=== PATIENT | male | born 1985 | race Caucasian/White ===

== ENCOUNTER 2020-09-18 05:15 | Emergency (ER) | payer BC, SELFPAY ==
[2020-09-18] VITALS (9 sets, daily range): BP systolic 133–147; BP diastolic 78–85; PULSE 76–89; RESP 18; TEMP 37.3–37.6; O2SAT 93–98; BMI 24.3
[2020-09-18 06:30] LABS: Basophils # 0.1 K/mm3 (0-0.2); Basophils % 0.6 % (0.1-2.0); Eosinophils % 0.1 % (0.1-12.0); Hemoglobin 14.1 g/dL (14.1-18.0); Lymphocytes # 1.3 K/mm3 (0.7-4.5); Mean Corpuscular HGB Conc 32.7 g/dL (31.8-35.4); Mean Corpuscular Hemoglobin 28.6 pg (27.0-31.2); Mean Corpuscular Volume 87.3 fl (80-94); Mean Platelet Volume 8.8 fl (7.4-10.4); Monocytes # 0.8 K/mm3 (0.1-1.0); Monocytes % 8.2 % (1.7-9.3); Neutrophils # 7.8 K/mm3 (1.8-7.8); Platelet Count 228 K/mm3 (142-424); Red Blood Count 4.92 M/mm3 (4.60-6.20); Red Cell Distribution Width 12.9 % (11.5-17.5)
[2020-09-18 06:36] LABS: Alanine Aminotransferase 55 U/L (12-78); Albumin Level 3.5 g/dl (3.5-5.0); Albumin/Globulin Ratio 1.1 (1.1-1.8); Alkaline Phosphatase 161 U/L (38-126); Anion Gap 9.3 mEq/L (5-15); Aspartate Amino Transferase 60 U/L (17-59); Bilirubin,Total 0.5 mg/dl (0.2-1.3); Blood Urea Nitrogen 20 mg/dl (9-20); Calcium 8.8 mg/dl (8.4-10.2); Carbon Dioxide 32 mmol/L (22.0-30.0); Chloride 93 mmol/L (98-107); Creatinine Clearance Estimated 110 mL/min (50-200); Estimated Glomerular Filt Rate 86 ml/min (>60); GFR (African American) 103 ML/MIN (>60); Globulin 3.3 g/dL (1.3-3.2); Glucose 344 mg/dl (74-100); Potassium 4.3 mmoL/L (3.5-5.1); Sodium 130 mmol/L (136-145); Total Protein,Serum 6.8 g/dl (6.3-8.2)
[2020-09-18 06:41] LABS: C-Reactive Protein 118.2 mg/L (0-4)
[2020-09-18 06:41] LABS: Microscopic, Urine URINE MICROSCOPIC (MICROSCOPIC)
[2020-09-18 06:52] LABS: Procalcitonin 0.809 ng/mL (0.0-2.0)
[2020-09-18 07:03] LABS: Appearance,Urine CLEAR (Clear); Bilirubin,Urine Negative (Negative); Blood, Urine Negative (Negative); Color,Urine YELLOW (Yellow); Glucose,Urine (UA) 3+ (Negative); Ketones,Urine Negative (Negative); Leukocyte Esterase,Urine Negative (Negative); Nitrate,Urine Negative (Negative); Protein,Urine Negative (Negative); Specific Gravity, Urine <= 1.005 (1.005-1.030); Urobilinogen,Urine 0.2 EU/dl (0.2)
[2020-09-18 07:27] LABS: Erythrocyte Sedimentation Rate 12 mm/hr (0-15)
--- NOTE | 2020-09-18 07:30 | XR_ITS ---
PROCEDURE: XR HIP RT 2-3V W/PELVIS CLINICAL INDICATION: pain COMPARISON: No exams were available for comparison FINDINGS: There are mild osteoarthritic changes of the right hip with some decrease in the joint space and osteosclerosis of the acetabular roof. Contrast is present in the urinary bladder. No acute fracture or dislocation. No lytic or blastic change. IMPRESSION: Mild osteoarthritic change Dictated by: Barry Hogan MD 09/18/2020 08:45 Barry Hogan MD in [facility] 09/18/2020 08:45
--- NOTE | 2020-09-18 07:30 | CT_ITS ---
PROCEDURE: CT THORACIC SPINE W CON CLINICAL HISTORY: pain COMPARISON: No exams were available for comparison TECHNIQUE: Axial images obtained with sagittal and coronal reformats. All CT scans at the facility use one or more dose reduction, viz: automated exposure control, ma/kV adjustment per patient size (including targeted exams where dose is matched to indication, i.e. head), or iterative reconstruction technique. FINDINGS: Normal alignment. No acute fracture or dislocation. No lytic or blastic change. No paraspinal mass or enhancing lesions there is mild degenerative disc disease with endplate irregularity at T6, T7, T8, T9 and T10. Schmorl's nodes are present on the endplates the at T9-T8 and T7. There is trace small right effusion with atelectasis or infiltrate in the right lung base posteriorly. This is below limits of resolution on the chest x-ray. IMPRESSION: 1. Degenerative changes of the thoracic spine. No acute fracture. 2. Right basilar atelectasis or infiltrate with trace effusion Dictated by: Barry Hogan MD 09/18/2020 08:51 Barry Hogan MD in [facility] 09/18/2020 08:51
--- NOTE | 2020-09-18 07:30 | XR_ITS ---
PROCEDURE: XR SHOULDER RT MIN 2V CLINICAL INDICATION: pain COMPARISON: No exams were available for comparison FINDINGS: No fracture or dislocation. No lytic or blastic change. There is normal mineralization. The joint spaces are well-preserved. No significant degenerative/arthritic changes. No erosive changes evident. Other findings:None. IMPRESSION: No acute findings. Dictated by: Barry Hogan MD 09/18/2020 08:45 Barry Hogan MD in [facility] 09/18/2020 08:45
--- NOTE | 2020-09-18 07:30 | XR_ITS ---
PROCEDURE: XR CHEST 2V CLINICAL HISTORY: soa Shortness of air with fever COMPARISON: No exams were available for comparison FINDINGS: The cardiomediastinal silhouette and pulmonary vascularity are within normal limits. The lungs are clear without infiltrates, suspicious nodules, or pleural effusions. No acute bony abnormalities. IMPRESSION: No acute findings. Dictated by: Barry Hogan MD 09/18/2020 08:46 Barry Hogan MD in [facility] 09/18/2020 08:46
[2020-09-18 07:31] LABS: Acetone, Serum (Rapid) None Detected (None Detect)
[2020-09-18 07:36] LABS: RBC,Urine Occasional #/hpf (0-3)
--- NOTE | 2020-09-18 08:35 | HMH.EDGENADL ---
ED Disposition Clinical Impression: Muscle spasm of back Bursitis of hip, right Qualifiers: Hip bursitis location: trochanteric bursitis Qualified Code(s): M70.61 - Trochanteric bursitis, right hip Disposition: Home, Self-Care Condition on Discharge: Good Referrals: Jackie Martinez [Primary Care Provider] - 3 days Time of Disposition: 10:19 - Critical Care Critical Care Time: No Attestation: On 09/18/20, the high probability of a clinically significant, sudden or life threatening deterioration of the following system(s) required my full and direct attention, intervention and personal management. The time I documented below is in addition to time spent performing reported procedures but includes the following listed in this critical care notation. Medical Decision Making - Anibal Inquiry Pt receiving controlled substance: No Vital Signs: 09/18/20 05:53 09/18/20 06:00 09/18/20 06:09 Temperature 99.7 F H Temperature Source Oral Pulse Rate [Left Brachial] 83 Respiratory Rate 18 Blood Pressure 142/80 H Blood Pressure [Left Arm] 147/85 H Blood Pressure Mean 111 Blood Pressure Mean [Left Arm] 105 Blood Pressure Source [Left Arm] Automatic Cuff Blood Pressure Position [Left Arm] 02 Sat by Pulse Oximetry 96 96 97 Oxygen Delivery Method Room Air 09/18/20 06:15 09/18/20 06:35 09/18/20 06:45 Temperature Temperature Source Pulse Rate [Left Brachial] Respiratory Rate Blood Pressure Blood Pressure [Left Arm] Blood Pressure Mean Blood Pressure Mean [Left Arm] Blood Pressure Source [Left Arm] Blood Pressure Position [Left Arm] 02 Sat by Pulse Oximetry 98 96 97 Oxygen Delivery Method 09/18/20 06:56 09/18/20 07:26 Temperature Temperature Source Pulse Rate [Left Brachial] 76 Respiratory Rate Blood Pressure 135/80 Blood Pressure [Left Arm] 134/78 Blood Pressure Mean 98 Blood Pressure Mean [Left Arm] 96 Blood Pressure Source [Left Arm] Automatic Cuff Blood Pressure Position [Left Arm] Supine 02 Sat by Pulse Oximetry 97 93 L Oxygen Delivery Method Room Air - Lab Data Lab results reviewed: Yes: I reviewed the patient's lab results. Lab Results 09/18/20 05:45: WBC 10.0, RBC 4.92, Hgb 14.1, Hct 43.0, MCV 87.3, MCH 28.6, MCHC 32.7, RDW 12.9, Plt Count 228, MPV 8.8, Neut % (Auto) 78.0, Lymph % (Auto) 13.0, Meagher % (Auto) 8.2, Eos % (Auto) 0.1, Baso % (Auto) 0.6, Neut # (Auto) 7.8, Lymph # (Auto) 1.3, Meagher # (Auto) 0.8, Eos # (Auto) 0.0, Baso # (Auto) 0.1, ESR 12 09/18/20 05:45: Sodium 130 L, Potassium 4.3, Chloride 93 L, Carbon Dioxide 32 H, Anion Gap 9.3, BUN 20, Creatinine 1.00, Estimated Creat Clear 110, Estimated GFR 86, Est GFR ( Amer) 103, Glucose 344 H, Calcium 8.8, Total Bilirubin 0.5, AST 60 H, ALT 55, Alkaline Phosphatase 161 H, C-Reactive Protein 118.2 H, Total Protein 6.8, Albumin 3.5, Globulin 3.3 H, Albumin/Globulin Ratio 1.1, Procalcitonin 0.809 09/18/20 05:45: Acetone Level None detected 09/18/20 06:35: Urine Color Yellow, Urine Appearance Clear, Urine pH 6.0, Ur Specific [place] <= 1.005, Urine Protein Negative, Urine Glucose (UA) 3+, Urine Ketones Negative, Urine Blood Negative, Urine Nitrate Negative, Urine Bilirubin Negative, Urine Urobilinogen 0.2, Ur Leukocyte Esterase Negative, Urine RBC Occasional, Urine WBC 3-5, Ur Squamous Epith Cells 3-5, Urine Bacteria None Result diagrams: 09/18/20 05:45 09/18/20 05:45 Orders (Tests/Meds): ED MEDICATIONS Generic Name Dose Route Start Last Admin Trade Name Freq PRN Reason Stop Dose Admin Sodium Chloride 10 ml 09/18/20 08:09 Sodium Chloride 0.9% 10ml Syr (Rad Only) IV 10/18/20 08:08 NEEDED PRN Maintain IV Site Discontinued Medications Generic Name Dose Route Start Last Admin Trade Name Freq PRN Reason Stop Dose Admin Lactated Ringer's 1,000 mls @ 999 mls/hr 09/18/20 06:15 09/18/20 06:53 Lactated Ringer's 1000 Ml Bag IV 09/18/20 07:15 999
--- NOTE | 2020-09-18 09:42 | PC.NURSE ---
called dr hi for dr walter for admission
--- NOTE | 2020-09-19 21:26 | PC.NURSE ---
[facility] called for medical records on patient due to patient going to their er.
== END 2020-09-18 10:27 | disposition home or self-care (01) ==
PROVIDERS: Emergency Provider Emergency Medicine; PCP Nurse Practitioner Family
DX: M70.61 Trochanteric bursitis, right hip (principal); M62.830 Muscle spasm of back; E10.65 Type 1 diabetes mellitus with hyperglycemia
CPT/HCPCS: 71046; 72129; 73030; 73502; 80053; 81001; 82009; 84145; 85025; 85651; 86140; 96365; 96375; 99283; J2405; Q9967

== ENCOUNTER → 2020-10-09 13:24 | Outpatient (CLI) | payer BC, SELFPAY ==
--- NOTE | 2020-10-09 13:28 | CT_ITS ---
PROCEDURE: CT PELVIS WO CON CLINICAL HISTORY: RT HIP ARTHRITIS,BUTTOCK ABSCESS COMPARISON: No exams were available for comparison TECHNIQUE: Axial images obtained with sagittal and coronal reformats. All CT scans at the facility use one or more dose reduction, viz: automated exposure control, ma/kV adjustment per patient size (including targeted exams where dose is matched to indication, i.e. head), or iterative reconstruction technique. FINDINGS: Report is delayed waiting on additional images which are submitted for interpretation on 10/11/2020. There is some subcutaneous soft tissue swelling in the lateral aspect of the right hip. No obvious abscess is evident. Abscess evaluation is limited without IV contrast. There is mild thickening of the right iliotibial tract/fascia. No fracture or dislocation. No bony destructive process. IMPRESSION: Stranding of the subcutaneous fat in the right lateral hip region and mild thickening the iliotibial tract/fascia consistent with cellulitis and fasciitis. No obvious abscess apparent. Dictated by: Barry Hogan MD 10/11/2020 09:07 Barry Hogan MD in [facility] 10/11/2020 09:07
== END ==
PROVIDERS: PCP Nurse Practitioner Family; Visit Provider Internal Medicine Infectious Disease
DX: L02.31 Cutaneous abscess of buttock (principal); M00.851 Arthritis due to other bacteria, right hip
CPT/HCPCS: 72192

== ENCOUNTER 2021-03-02 14:02 | Emergency (ER) | payer BC, SELFPAY ==
[2021-03-02 16:34] VITALS: BP 134/85; PULSE 75; RESP 19; TEMP 36.8; O2SAT 97; BMI 24.3
--- NOTE | 2021-03-02 16:48 | HMH.EDUTC ---
[facility] [place] Clinical Impression: Exposure to COVID-19 virus, Viral syndrome Disposition: Home, Self-Care Condition on Discharge: Good Instructions: DI for COVID-19 (Suspected or Confirmed ), Preventing the Spread of Coronavirus Discharge Instructions Additional Instructions: Drink plenty of fluids. Take tylenol or ibuprofen for pain or fever. Follow up with your regular doctor. GO TO THE ER FOR ANY WORSENING SYMPTOMS Quarantine until you know the results of your covid-19 test. If it is positive, the health department should call you and give you further instructions about your length of Quarantine and other things. Notify your school or workplace of your results and follow their instructions regarding return to work/school. Referrals: Jackie Martinez [Primary Care Provider] - Time of Disposition: 16:50 Medical Decision Making - Medical Records Medical records reviewed: No: I reviewed the patient's medical records. - Anibal Inquiry Pt receiving controlled substance: No Vital Signs: 03/02/21 16:34 03/02/21 17:07 Temperature 98.2 F 98.2 F Temperature Source Oral Pulse Rate 75 Pulse Rate [Left] 75 Respiratory Rate 19 16 Blood Pressure 134/85 Blood Pressure [Right Arm] 134/85 Blood Pressure Mean [Right Arm] 101 02 Sat by Pulse Oximetry 97 - Lab Data Lab Results 03/02/21 20:28: Strep Scn Rapid Clinic Negative Orders (Tests/Meds): ORDERS Category Date Time Status Covid-19 Nasal PCR ([facility]) Routine Lab 03/02/21 16:30 Received Strep Screen Confirmation Stat Micro 03/02/21 20:28 Received [facility] [place] HPI - General Stated complaint: diabetic, covid exposure, throat sore Time Seen by Provider: 03/02/21 16:49 Mode of Arrival: Ambulatory Source of Information: Patient Limitations: No Limitations Description of Symptoms (Recalled from Triage Doc. by RN): PT C/O CHILLS, SORE THROAT, AND BODY ACHES HEENT Symptoms (Recalled from RN notes): Yes (SORE THROAT) Resp Symptoms (Recalled from RN notes): No Skin Symptoms (Recalled from RN notes): No MS Symptoms (Recalled from RN notes): No Functional Status (Recalled from RN notes): CHILLS AND BODY ACHES - History of Present Illness Provider Complaint: He states that he was exposed to covid-19 at his job. He has had some body aches over the past 1 day, but he denies any other complaints. - Related Data Previous Rx's Medication Instructions Recorded Cyclobenzaprine HCl [Flexeril 10mg 10 mg PO Q8HP PRN 7 Days #21 tab 09/18/20 tablet] Allergies Allergy/AdvReac Type Severity Reaction Status Date / Time SULFA (sulfonamide) Allergy Unknown NA-NAUSEA/V Uncoded 06/23/17 14:47 OMITING - Worker's Comp Is this a Worker's Comp case?: No [facility] History - Hepatitis A Screen Drug use history?: No High risk sexual behaviors?: No History of sexually transmitted infection?: No Currently employed?: No Childcare worker?: No Do you have indoor plumbing?: Yes Do you have electricity?: Yes Attestation statement:: This patient has been screened for Hepatitis A risk factors. I have reviewed the patient's past medical history: Yes Medical History: Reports:: Diabetes Mellitus Type 1 ROS Obtained: Yes All systems reviewed & no additional complaints - Constitutional Constitutional: Reports system reviewed and no additional complaints, except as docu - Eyes Eyes: Reports system reviewed and no additional complaints, except as docu - ENT Ears, Nose, Mouth, and Throat: Reports system reviewed and no additional complaints, except as docu - Cardiovascular Cardiovascular: Reports system reviewed and no additional complaints, except as docu - Respiratory Respiratory: Reports system reviewed and no additional complaints, except as docu - Gastrointestinal Gastrointestingal: Reports: system reviewed and no additional complaints, except as docu Physical Exam - General General appearance: alert, in no apparent distress
[2021-03-02 17:07] VITALS: BP 134/85; PULSE 75; RESP 16; TEMP 36.8
[2021-03-02 22:04] LABS: UTC Strep Screen (Rapid) Negative (Negative)
== END 2021-03-02 17:11 | disposition home or self-care (01) ==
PROVIDERS: Emergency Provider Nurse Practitioner Family; PCP Nurse Practitioner Family
DX: U07.1 COVID-19 (principal); E10.9 Type 1 diabetes mellitus without complications; Z88.2 Allergy status to sulfonamides
CPT/HCPCS: 87880; 99203; G0463; U0003

== ENCOUNTER → 2021-07-25 13:40 | Outpatient (CLI) | payer BC, SELFPAY | PROVIDERS: Visit Provider Nurse Practitioner | DX: U07.1 COVID-19 (principal) | CPT/HCPCS: C9803; U0003; U0005 ==

== ENCOUNTER 2022-08-22 18:10 | Emergency (ER) | payer BC, SELFPAY ==
[2022-08-22 18:19] VITALS: BP 142/78; PULSE 73; RESP 16; TEMP 36.6; O2SAT 99; BMI 22.8
[2022-08-22 18:30] VITALS: BP 142/78; PULSE 73; RESP 16; TEMP 36.6; O2SAT 99; BMI 22.9
[2022-08-22 18:59] VITALS: BP 142/78; PULSE 73; RESP 16; TEMP 36.6; O2SAT 99
--- NOTE | 2022-08-22 19:11 | EXP.UTC ---
Discharge Plan Disposition Patient Disposition: Home, Self-Care Condition: Good Prescriptions Prescriptions: New meclizine 25 mg tablet 25 mg PO TID PRN (Reason: dizziness) Qty: 15 0RF fluticasone propionate [Flonase Allergy Relief] 50 mcg/actuation spray,suspension 1 spray intranasal DAILY Qty: 16 0RF Rx Instructions: administer into each nostril No Action cyclobenzaprine 10 MG tablet 10 mg PO Q8HP PRN (Reason: Muscle Spasm) 7 Days Qty: 21 0RF Referrals Follow up/Referrals: Vero Valdivia APRN [Primary Care Provider] - See instructions Activity Restrictions/Add. Instructions Additional Instructions/Restrictions: Slow steady movments do not make any quick movements Take meclizine as prescribed for vertigo/dizziness Continue antibiotics for ear infection Follow up with your Family Doctor on Thursday if no improvement or any worsening of symptoms Watch your blood sugar as discussed No driving or operating heavy equiptment while havign vertigo Clinical Impressions Clinical Impression: Dizziness Stand Alone Forms Stand Alone Forms: Work/School Release Instructions Patient Instructions: Vertigo Discharge ED Provider: Callie Mei [facility] [place], [place] General Stated complaint: dizzy ears rings Mode of Arrival: Ambulatory Source of Information: Patient Limitations: No Limitations Time Seen by Provider: 08/22/22 19:11 Description of Symptoms (Recalled from Triage Doc. by RN): PATIENT C/O DIZZINESS, HEADACHE AND FEELING HOT. DIAGNOSED WITH AN EAR INFECTION 2 DAYS AGO HEENT Symptoms (Recalled from RN notes): Yes Resp Symptoms (Recalled from RN notes): No Skin Symptoms (Recalled from RN notes): No MS Symptoms (Recalled from RN notes): No Functional Status (Recalled from RN notes): WNL History of Present Illness Provider Complaint: Patient states that he was dx with right ear infection 2 days ago and started on antibiotics States that he has been taking them but doesnt feel like it is getting any better States that he has still been having pressure and fullness in his ears states that he has a history of vertigo and has been having dizziness today and feeling like the room is spinning and bumping into things and wasnt able to go to work States that when he moves too quickly dizziness worsens Related Data Previous Rx's Medication Instructions Recorded cyclobenzaprine 10 mg tablet 10 mg PO Q8HP PRN Muscle Spasm 7 03/16/21 days #21 tabs fluticasone propionate 50 1 spray intranasal DAILY #16 grams 08/22/22 mcg/actuation nasal spray,suspension (Flonase Allergy Relief) meclizine 25 mg tablet 25 mg PO TID PRN dizziness #15 tabs 08/22/22 Allergies Allergy/AdvReac Type Severity Reaction Status Date / Time SULFA (sulfonamide) Allergy Unknown NA-NAUSEA/V Uncoded 06/23/17 14:47 OMITING Worker's Comp Is this a Worker's Comp case?: No [facility] Disclaimer: The information contained in this section may have been updated after the patient was seen, as this information can be updated by other users. Medical History (Updated 08/22/22 @ 19:22 by Callie Mei APRN) Diabetes mellitus type 1 Thyroid disease Social History (Updated 08/22/22 @ 18:41 by Bella Amaral RN) Smoking Status: Unknown if ever smoked alcohol intake: never current occupational status: other Travel in the last 8 weeks: None ROS Obtained: Yes All systems reviewed & no additional complaints except as documented and Yes Systems reviewed as appropriate & no additional complaints except as documented Constitutional Constitutional: Reports system reviewed and no additional complaints, except as documented, Reports as per HPI and Denies headache(s) ENT Ears, Nose, Mouth, and Throat: Reports system reviewed and no additional complaints, except as documented, Reports as per HPI, Denies abnormal hearing, Reports dizziness, Reports otalgia, Denies headache(s) and Reports vertigo Cardiovascular Cardiovascular: R
== END 2022-08-22 20:01 | disposition home or self-care (01) ==
LOC: ER 18:19 → UTC 18:20
PROVIDERS: Emergency Provider Nurse Practitioner; PCP Nurse Practitioner Family
DX: R42 Dizziness and giddiness (principal)
CPT/HCPCS: 96372; 99212; 99213; G0463

== ENCOUNTER 2023-05-04 08:35 | Emergency (ER) | payer BC, SELFPAY ==
[2023-05-04] VITALS (7 sets, daily range): BP systolic 121–135; BP diastolic 68–86; PULSE 62–84; RESP 16; TEMP 36.7; O2SAT 97–100; BMI 24.3
--- NOTE | 2023-05-04 09:08 | CT_ITS ---
FINAL REPORT CLINICAL HISTORY: vertigo, not improving COMPARISON: None FINDINGS: Axial images of the head were obtained without contrast. Coronal and sagittal reformatted images were also obtained.This study was performed with techniques to keep radiation doses as low as reasonably achievable (ALARA). Individualized dose reduction techniques using automated exposure control or adjustment of mA and/or kV according to the patient's size were employed. There is no evidence of intracranial hemorrhage or mass. The ventricular size is within normal limits. There is no evidence of shift of the midline structures. No abnormal extra axial fluid collection is identified. No skull abnormality is seen on the bone window images. IMPRESSION: No acute intracranial abnormality. Reviewed, Interpreted and Dictated by Shivam Reis III, MD Transcribed by Avelina Powell Authenticated and [facility]
--- NOTE | 2023-05-04 09:08 | CT_ITS ---
FINAL REPORT TECHNIQUE: Thin section axial CT with IV contrast supplemented with multiplanar reconstruction under CT angiogram protocol. 3-D reconstructions were performed. This study was performed with techniques to keep radiation doses as low as reasonably achievable (ALARA). Individualized dose reduction techniques using automated exposure control or adjustment of mA and/or kV according to the patient's size were employed. CLINICAL HISTORY: vertigo, not improving COMPARISON: None no significant intracranial vascular abnormality identified. FINDINGS: The distal vertebral, basilar and distal internal carotid arteries have an unremarkable appearance. No aneurysm is seen. Major intracranial vessels are patent without significant stenosis. IMPRESSION: No significant intracranial vascular abnormality identified. Reviewed, Interpreted and Dictated by Shivam Reis III, MD Transcribed by Avelina Powell Authenticated and [facility]
--- NOTE | 2023-05-04 09:08 | CT_ITS ---
FINAL REPORT TECHNIQUE: Thin section axial CT with IV contrast supplemented with multiplanar reconstruction under CT angiogram protocol. This study was performed with techniques to keep radiation doses as low as reasonably achievable (ALARA). Individualized dose reduction techniques using automated exposure control or adjustment of mA and/or kV according to the patient's size were employed. NASCET criteria was utilized during interpretation. CLINICAL HISTORY: vertigo, not improving COMPARISON: None FINDINGS: Aortic arch: Arch shows no significant narrowing. Great vessel origins are widely patent. Right carotid: No significant stenosis is seen of the cervical common or internal carotid artery. Left carotid: No significant stenosis is seen of the cervical common or internal carotid artery. Vertebral: Left vertebral artery is dominant. No significant stenosis is present. IMPRESSION: No evidence of significant carotid or vertebral artery stenosis in the neck. Reviewed, Interpreted and Dictated by Shivam Reis III, MD Transcribed by Avelina Powell Authenticated and . [facility]
--- NOTE | 2023-05-04 09:08 | PC.NURSE ---
Dr. Patterson at [facility] for pt eval
--- NOTE | 2023-05-04 09:11 | HMH.EDGENADL ---
Discharge Plan Disposition Patient Disposition: Home, Self-Care Condition: Good Prescriptions Prescriptions: No Action cyclobenzaprine 10 MG tablet 10 mg PO Q8HP PRN (Reason: Muscle Spasm) 7 Days Qty: 21 0RF meclizine 25 mg tablet 25 mg PO TID PRN (Reason: dizziness) Qty: 15 0RF fluticasone propionate [Flonase Allergy Relief] 50 mcg/actuation spray,suspension 1 spray intranasal DAILY Qty: 16 0RF Rx Instructions: administer into each nostril Referrals Follow up/Referrals: Vero Valdivia APRN [Primary Care Provider] - See instructions Activity Restrictions/Add. Instructions Additional Instructions/Restrictions: You were evaluated in the emergency department today. Continue taking meclizine at home as needed for symptoms. I also recommend using Flonase to help with drainage from your ears. I recommend close follow-up with ENT. Return to the emergency department for any new or worsening symptoms. Clinical Impressions Clinical Impression: Vertigo Instructions Patient Instructions: DI for Vertigo, DI for Meniere Disease Discharge ED Provider: Ashley Patterson General Adult HPI General Chief complaint: Dizziness Stated complaint: dizziness, nausea, ringing in right ear Time Seen by Provider: 05/04/23 09:03 Mode of Arrival: Ambulatory Source of Information: Patient Limitations: No Limitations Description of Symptoms (Recalled from ER Triage Doc. by RN): Patient states he has been having issues with vertigo and ringing in his right ear for some time now. States that his PCP prescribed him meclizine and that all it does is make him sleep. States he spoke to his PCP who stated he needed to come to the ER for evaluation because it is not getting any better. History of Present Illness HPI narrative: This patient is a 38-year-old male who denies significant past medical history presenting to the emergency department for evaluation with concern for dizziness patient reports that he has been dealing with vertigo for a month and a half, and he has seen his primary care provider 3 times for this. He states that he has been put on meclizine, which is not helping his symptoms. He notes that he is scheduled to see ENT, however his appointment is not until May. He notes that he has a constant sensation that the room is spinning which gets worse with position changes. He also notes that he has ringing in his right ear. He states his primary care provider told him to come in for evaluation because he may need a CT scan of his head. He denies any vision changes, headaches, numbness, tingling, unilateral weakness, difficulties with balance, or other concerns. Related Data Previous Rx's Medication Instructions Recorded cyclobenzaprine 10 mg tablet 10 mg PO Q8HP PRN Muscle Spasm 7 09/18/20 days #21 tabs fluticasone propionate 50 1 spray intranasal DAILY #16 grams 08/22/22 mcg/actuation nasal spray,suspension (Flonase Allergy Relief) meclizine 25 mg tablet 25 mg PO TID PRN dizziness #15 tabs 08/22/22 Allergies Allergy/AdvReac Type Severity Reaction Status Date / Time Sulfa (Sulfonamide Allergy Intermediate Nausea Verified 05/04/23 10:14 Antibiotics) [facility] Disclaimer: The information contained in this section may have been updated after the patient was seen, as this information can be updated by other users. Medical History Diabetes mellitus type 1 Thyroid disease Social History Smoking Status: Never smoker alcohol intake: never current occupational status: other Travel in the last 8 weeks: None ROS Obtained: Yes All systems reviewed & no additional complaints except as documented Physical Exam General General appearance: alert and in no apparent distress Head Head exam: atraumatic and normocephalic Eye Eye exam: Present normal appearance, PERRL, EOMI and ny
[2023-05-04 09:40] LABS: Chloride 96 mmol/L (98-107)
[2023-05-04 09:41] LABS: Basophils # 0.1 K/mm3 (0-0.2); Eosinophils # 0.7 K/mm3 (0.0-0.4); Eosinophils % 8.3 % (0.1-12.0); Hemoglobin 15.9 g/dL (14.1-18.0); Lymphocytes # 2.7 K/mm3 (0.7-4.5); Lymphocytes % 33.2 % (10-50); Mean Corpuscular HGB Conc 34.5 g/dL (31.8-35.4); Mean Corpuscular Hemoglobin 30.8 pg (27.0-31.2); Mean Corpuscular Volume 89.1 fl (80-94); Mean Platelet Volume 9.5 fl (7.4-10.4); Monocytes # 0.6 K/mm3 (0.1-1.0); Monocytes % 7.2 % (1.7-9.3); Neutrophils % 50.3 % (37.0-80.0); Platelet Count 207 K/mm3 (142-424); Potassium 3.9 mmoL/L (3.5-5.1); Red Blood Count 5.16 M/mm3 (4.60-6.20); Red Cell Distribution Width 13.4 % (11.5-17.5); Sodium 137 mmol/L (136-145)
[2023-05-04 09:43] LABS: Blood Urea Nitrogen 14 mg/dl (9-20); Creatinine Clearance Estimated 104 mL/min (50-200); Estimated Glomerular Filt Rate 84 ml/min (>60); GFR (African American) 102 ML/MIN (>60)
[2023-05-04 09:44] LABS: Anion Gap 7.9 mEq/L (5-15); Calcium 8.9 mg/dl (8.4-10.2); Carbon Dioxide 37 mmol/L (22.0-30.0); Glucose 278 mg/dl (74-100)
--- NOTE | 2023-05-04 09:57 | PC.NURSE ---
Pt gone to RAD
--- NOTE | 2023-05-04 10:15 | PC.NURSE ---
Pt returned from RAD
--- NOTE | 2023-05-04 10:35 | PC.NURSE ---
Rounded on pt. No needs voiced at this time. Call light within reach.
--- NOTE | 2023-05-04 10:53 | PC.NURSE ---
ct scan read is currently locked according to radiology
--- NOTE | 2023-05-04 11:44 | PC.NURSE ---
Rounded on pt. No needs voiced at this time. Call light within reach.
== END 2023-05-04 12:07 | disposition home or self-care (01) ==
PROVIDERS: Emergency Provider Emergency Medicine; PCP Nurse Practitioner Family
DX: R42 Dizziness and giddiness (principal); R73.9 Hyperglycemia, unspecified
CPT/HCPCS: 70450; 70496; 70498; 80048; 85025; 99284; 99285; Q9967

== ENCOUNTER → 2023-06-11 11:19 | Outpatient (POV) | payer BC, SELFPAY | PROVIDERS: Visit Provider Specialist/Technologist | DX: Z00.00 Encounter for general adult medical examination without abnormal findings (principal) ==

== ENCOUNTER 2023-07-22 07:34 | Outpatient (CLI) | payer BC, SELFPAY ==
--- NOTE | 2023-07-22 07:34 | MR_ITS ---
FINAL REPORT CLINICAL HISTORY: Eustachian Tube Dysfunction; moderate hearing loss FINDINGS: Multiplanar MR imaging of the brain was performed without and with contrast, with attention to the posterior fossa, cerebellopontine angles and internal auditory canals. There is no evidence of intracranial hemorrhage or mass. The ventricular size is within normal limits. There is no evidence of shift of the midline structures. No area of abnormal restricted diffusion is identified. Normal major vessel vascular flow voids are seen. No abnormal contrast enhancement is identified within the brain. No mass or abnormal contrast enhancement is seen within the cerebellopontine angles or internal auditory canals. No focal abnormality is identified of the temporal bones. IMPRESSION: No acute intracranial abnormality identified. No mass or abnormal contrast enhancement identified within the cerebellopontine angles or internal auditory canals. Reviewed, Interpreted and Dictated by Shivam Reis III, MD Transcribed by Zaynab Dukes Authenticated and [facility]
[2023-07-22 07:57] LABS: Blood Urea Nitrogen 14 mg/dl (9-20); Estimated Glomerular Filt Rate 84 ml/min (>60); GFR (African American) 102 ML/MIN (>60)
[2023-07-22] MEDS: SODIUM CHLORIDE 0.9% 10ML SYR (RAD ONLY) 10 ML IV (08:30)
[2023-07-22] MEDS: GADOTERIDOL INJ 17ML SYRINGE 15 ML IV (08:30)
== END 2023-07-22 23:59 ==
LOC: RAD 07:34
PROVIDERS: PCP Nurse Practitioner Family; Visit Provider Nurse Practitioner
DX: H69.90 Unspecified Eustachian tube disorder, unspecified ear (principal); H90.5 Unspecified sensorineural hearing loss
CPT/HCPCS: 36415; 70553; 82565; 84520; A9576